=== PATIENT | male | born 1945 | race Caucasian/White ===

== ENCOUNTER → 2024-07-30 13:02 | Outpatient (REF) | payer MEDICARE, SELFPAY | LOC: UCDH 13:02 | PROVIDERS: ATTENDING PHYSICIAN Emergency Medicine; FAMILY PHYSICIAN Family Medicine | DX: S29.9XXA Unspecified injury of thorax, initial encounter (principal) | CPT/HCPCS: 71101 ==

== ENCOUNTER 2025-03-19 14:11 | Outpatient (RCR) | payer MEDICARE, SELFPAY | END 2025-03-19 23:59 | disposition home or self-care (01) | LOC: RPT 14:11 | PROVIDERS: FAMILY PHYSICIAN Student in an Organized Health Care Education/Training Program | DX: R26.9 Unspecified abnormalities of gait and mobility (principal); Z73.6 Limitation of activities due to disability | CPT/HCPCS: 97110; 97112; 97161 ==

== ENCOUNTER 2025-04-20 09:59 | Outpatient (RCR) | payer MEDICARE, SELFPAY | END 2025-04-20 23:59 | disposition home or self-care (01) | LOC: RPT 09:59 | PROVIDERS: ATTENDING PHYSICIAN Podiatrist Primary Podiatric Medicine; FAMILY PHYSICIAN Student in an Organized Health Care Education/Training Program | DX: R26.9 Unspecified abnormalities of gait and mobility (principal); Z73.6 Limitation of activities due to disability | CPT/HCPCS: 97110; 97112 ==